=== PATIENT | male | born 1955 | race Caucasian/White ===

== ENCOUNTER 2023-11-03 10:25 | Outpatient (CLI) | payer BC, SELFPAY ==
--- NOTE | ~2023-11-03 | MR_ITS ---
MRI of the lumbar spine Clinical History: Spinal stenosis Technique: Axial T2-weighted images, and sagittal T1-weighted, T2-weighted, and T2 fat-sat images wer e acquired. Findings: There is no fracture or subluxation of the lumbar spine. Vertebral bodies maintain normal h eight and alignment. No bone marrow signal abnormality seen. At L1-L2, there is minimal disc bulge with mild to moderate facet arthropathy. No central canal steno sis or neural foraminal narrowing. At L2-L3, there is mild disc bulge with mild to moderate facet arthropathy. No central canal stenosis or neural foraminal narrowing. At L3-L4, there is disc bulge and mild to moderate facet arthropathy. There is mild central canal soy nosis. Right neural foramen dose is mild to moderate narrowing. Left neural foramen preserved. At L4-L5, disc bulge and facet arthropathy result in mild central canal stenosis. Neural foramina are preserved. At L5-S1, there is minimal central disc bulge. There is mild to moderate facet arthropathy. No centra l canal stenosis or neural foraminal narrowing. Paravertebral soft tissues are unremarkable. Impression: [id number] degenerative spondylosis, as above. Reviewed, dictated and finalized at location . CONSULTANT Impression: [id number] degenerative spondylosis, as above.
== END 2023-11-03 10:26 | disposition home or self-care (01) ==
PROVIDERS: PCP Family Medicine; Visit Provider Neurological Surgery
DX: M48.062 Spinal stenosis, lumbar region with neurogenic claudication (principal); M47.816 Spondylosis without myelopathy or radiculopathy, lumbar region
CPT/HCPCS: 72148